=== PATIENT | male | born 1975 | race Caucasian/White ===

== ENCOUNTER 2025-08-13 14:01 | Emergency (ER) | payer SELFPAY ==
[2025-08-13 14:01] VITALS: BMI 31.8
[2025-08-13 14:04] VITALS: BP 123/80
[2025-08-13] MEDS: NSS 1000 IV (14:26)
[2025-08-13] MEDS: ZOFRAN 4 MG IV (14:27)
[2025-08-13] MEDS: TORADOL 15 MG IV (14:27)
[2025-08-13 14:35] VITALS: BP 141/90
[2025-08-13 14:39] LABS: Hematocrit 43.4 % (39.0-52.0); Hemoglobin 15.2 g/dL (13.0-18.0); Mean Corp Hgb Conc. 35.0 g/dL (33.0-37.0); Mean Corpuscular Volume 87.1 fL (80.0-94.0); Nucleated Red Blood Cells % 0 % (-); Platelet Count 384 10^3/uL (130-400); Red Cell Dist. Width 12.2 % (11.5-14.5)
[2025-08-13 15:15] LABS: AST (SGOT) 36 U/L (17-59); Albumin 5.1 g/dl (3.5-5.0); Alkaline Phosphatase 68 U/L (38-126); Blood Urea Nitrogen 21 mg/dl (9-20); Calcium 10.3 mg/dl (8.4-10.2); Carbon Dioxide 17 mmol/L (22-30); Chloride 105 mmol/L (98-107); Estimated Creatinine Clearance 51 ml/min; Glucose 120 mg/dl (70-99); Lipase 59 U/L (23-300); Potassium 4.2 mmol/L (3.5-5.1); Sodium 136 mmol/L (135-145); Total Protein 8.0 g/dl (6.3-8.2); eGFR 48.51
[2025-08-13 15:30] LABS: ALT (SGPT) 63 U/L (0-50)
[2025-08-13 15:35] VITALS: BP 139/86
--- NOTE | 2025-08-13 15:45 | EDRN ---
Pt OOB to attempt a urine spec at this time.
--- NOTE | 2025-08-13 15:49 | ED.GENMED ---
History of Present Illness
General
Chief Complaint: Abdominal Pain
Source: patient
Exam Limitations: none
Time Seen by Provider: 08/13/25 14:13
History of Present Illness
History of Present Illness:
49-year-old male sudden onset of left upper quadrant pain earlier today with associate with nausea and vomiting. Cannot get comfortable. No fever. No other complaints. No history of same.
Past History
Past History
ED Past Medical History: None
Review of Systems
Review of Systems
All Other Systems: Not applicable
Respiratory: Reports no symptoms
Cardiac: Reports no symptoms
Phy Exam
Physical Exam
Physical Exam:
GENERAL: Alert and oriented. Initially leaning over the stretcher appearing uncomfortable. Cannot find a comfortable position in no apparent distress
EYE: Orbits normal.
NECK: Supple
CARDIAC: Regular rate and rhythm without any obvious murmurs.
LUNGS: Clear breath sounds,normal
ABDOMEN: Soft, without focal tenderness or distention. Specifically no left upper quadrant tenderness no left lower quadrant tenderness no rebound or guarding no mass or hernia
NEUROLOGICAL: Alert and oriented , grossly non-focal
SKIN: Warm and dry, no rash or lesion, no discoloration, skin intact.
MUSCULOSKELETAL: No edema,no deformity.Good color
PSYCH: Normal and appropriate interaction.
Course
Orders/Labs/Results
Orders:
Orders
08/13/25 14:18
CT Abd/pel Without Iv Or Oral Urgent
Comment:
Reason For Exam: Left upper quadrant/left flank pain
IV Insert/Care/Rem.- Treatment PRN
0.9% Sodium Chloride 1000 ml [Nss] 1,000 ml IV BOLUS
Ketorolac [Toradol] 15 mg IV NOW STA
Ondansetron Injectable [Zofran] 4 mg IV NOW STA
08/13/25 14:31
Complete Blood Count/With Diff Urgent
Comprehensive Metabolic Panel Urgent
Lipase Urgent
08/13/25 15:57
Urinalysis Reflex To Culture Urgent
Date Specimen was Collected: 08/13/25
Time Specimen was Collected: 15:55
Urine Microscopic Reflex Cult Urgent
08/13/25 17:12
CefTRIAXone [Rocephin] 1,000 mg IV NOW STA
Abnormal Lab Results
08/13/25 08/13/25
14:31 15:57
WBC 17.1 H 10^3/uL
(4.8-10.8)
Abs Immat Gran (auto) 0.1 H 10^3/uL
(0-0.05)
Absolute Neuts (auto) 15.6 H 10^3/uL
(1.4-6.5)
Absolute Lymphs (auto) 0.8 L 10^3/uL
(1.2-3.4)
Neutrophils % 90.9 H %
(42.2-75.2)
Lymphocytes % 4.7 L %
(20.5-51.1)
Carbon Dioxide 17 L mmol/L
(22-30)
BUN 21 H mg/dl
(9-20)
Creatinine 1.7 H mg/dL
(0.7-1.3)
Glucose 120 H mg/dl
(70-99)
Calcium 10.3 H mg/dl
(8.4-10.2)
Total Bilirubin 1.7 H mg/dl
(0.2-1.3)
ALT 63 H U/L
(0-50)
Albumin 5.1 H g/dl
(3.5-5.0)
Urine Ketones 1+ A
(Negative)
Ur Occult Blood Reflex 1+ A
(Negative)
Urine RBC 3-6 A /HPF
(0-2)
Urine Bacteria (Reflex) Few A
(Negative)
Urine Albumin (Reflex) 1+ A
(Neg - Trace)
08/13/25 14:31
08/13/25 14:31
Vital Signs
Initial and Last Documented VS:
Initial Vital Signs
Temp Pulse Resp BP Pulse Ox
97.7 F 67 18 123/80 98
08/13/25 14:04 08/13/25 14:04 08/13/25 14:04 08/13/25 14:04 08/13/25 14:04
Last Documented Vital Signs
Temp Pulse Resp BP Pulse Ox
97.7 F 82 24 140/95 97
08/13/25 14:04 08/13/25 16:00 08/13/25 16:00 08/13/25 16:00 08/13/25 16:00
MDM/Problems Addressed
Differential Diagnosis Includes:
Patient behaving like a kidney stone. Cannot get comfortable. Associate with nausea and vomiting. Fairly sudden onset. Does have some radiation to the back. Interestingly as he was getting his Toradol shot he almost instantly developed an
improvement in his pain. Almost too soon to be from the Toradol.
*Pulse Oximetry
SaO2: 97
Oxygen Mode of Delivery: Room air
Patient hypoxic: no
*Critical Care Note
Total Time (30-74mins, 75-104mins- exclusive of procedures): Not Applicable
Update Note
Update Note:
Patient has remained stable and nontoxic. I went over the stone study with the patient. Highly doubt infectious issue with no fever no chills and a negative urine. However with the leukocytosis I will cover with antibiotics. Will follow-up with
urology this week.
ED Attending Note
-
Portions of this chart may have been created with voice recognition software.� Occasional wrong word or��sound alike� substitutions may have occurred due to the inherent limitations of voice recognition software.
Discharge Plan
Departure
Patient Disposition: Home (Routine Discharge)
Date of Disposition: 08/13/25
Time of Disposition: 17:13
Patient with high blood pressure during this ER visit?: Yes
Discharge Problem:
Left ureteral kidney stone, Minor renal insufficiency
Instructions: Kidney Stones (DC), BLOOD PRESSURE
Prescriptions:
New
tamsulosin [Flomax] 0.4 mg capsule
0.4 mg PO DAILY Qty: 14 0RF
ondansetron 4 mg tablet,disintegrating
4 mg PO TIDPRN PRN (Reason: nausea/vomiting) Qty: 10 0RF
hydrocodone-acetaminophen 5-300 mg tablet
1 tab PO Q6H PRN (Reason: Pain) Qty: 14 0RF
cefdinir 300 mg capsule
300 mg PO BID 5 Days Qty: 10 0RF
Referrals:
Rama Schwartz DC [Non-Admitting Privileges]
Curt Coats MD [Active, Urology] - Follow up in 2-3 days
NONE,* [Family Provider, Internal Medicine]
Activity Restrictions/Additional Instructions:
Your prescriptions were sent to the pharmacy. Tylenol or the hydrocodone for pain. Do not take Advil Motrin or Aleve
Call the urologist Friday for close follow-up early this week
Recommend getting repeat labs of your kidney function this week
Stay well-hydrated
Interventions
Interventions:
*Risk Screen - Suicide Last Done: 08/13/25 14:04
*General Assessment Last Done: 08/13/25 14:40
*Neglect/Abuse Screening Last Done: 08/13/25 14:04
*ED- Fall Risk Assessment Last Done: 08/13/25 14:40
*ED COVID-19 Vaccine History Last Done: 08/13/25 14:40
AK-Evmnbu-Lipvuvhvsx Assessment Last Done: 08/13/25 14:42
Discharge Date and Time
Print Language: COLOMBIAN
--- NOTE | 2025-08-13 15:59 | EDRN ---
Urine sent to lab at this time.
[2025-08-13 16:00] VITALS: BP 140/95
[2025-08-13 16:03] LABS: Urine Character Clear (Clear)
--- NOTE | 2025-08-13 16:47 | EDRN ---
Dr. Vidal in room w/pt at this time.
[2025-08-13] MEDS: ROCEPHIN 1000 MG IV (17:37)
== END 2025-08-13 17:59 | disposition home or self-care (01) ==
LOC: EMR 14:01
PROVIDERS: EMERGENCY PHYSICIAN Emergency Medicine
DX: N13.2 Hydronephrosis with renal and ureteral calculous obstruction (principal); N28.9 Disorder of kidney and ureter, unspecified
CPT/HCPCS: 99284; 96374; 96375; 96361; 74176; 80053; 81003; 81015; 83690; 85025